=== PATIENT | female | born 1950 | race Two or more races ===

== ENCOUNTER 2018-12-08 08:56 | Outpatient (CLI) | payer OTHER | END 2018-12-08 15:00 | disposition home or self-care (01) | LOC: LAB SALUS 08:56 | DX: Z11.4 Encounter for screening for human immunodeficiency virus [HIV] (principal); Z12.11 Encounter for screening for malignant neoplasm of colon; Z72.51 High risk heterosexual behavior; Z11.3 Encounter for screening for infections with a predominantly sexual mode of transmission; Z11.59 Encounter for screening for other viral diseases; Z13.1 Encounter for screening for diabetes mellitus; Z13.220 Encounter for screening for lipoid disorders ==